=== PATIENT | female | born 1955 | race American Indian/Alaskan Native ===

== ENCOUNTER 2017-12-03 16:40 | Emergency (ER) | payer OTHER ==
[2017-12-03] MEDS ORDERED: CATAPRES PO ONE (17:42)
--- NOTE | 2017-12-03 17:57 | Emergency Department Report ---
ED Headache HPI - General Chief Complaint: High BP Stated Complaint: HYPERTENTION Time Seen by Provider: 12/03/17 17:34 Source: patient, EMS Exam Limitations: no limitations - History of Present Illness Initial Comments: 62-year-old female with a past medical history of hypertension presents to the hospital complains of headache and episode of "shaking all over". Patient states about one hour started where she began having frontal headache, blurred vision and therefore took ibuprofen. Patient primarily stands at work one hour later she began to feel lightheaded. She sat down and started having shaking of her right hand followed by generalized shaking. Patient was conscious and aware during episode. Headache was mild at the time she has continued mild dizziness. Upon EMS arrival she received Versed 5 mg and reports that she feels better at the medication. Patient states she was diagnosed with hypertension 2 years ago and took the meds 1 month and never followed up. Patient complains of persistent mild frontal headache at this time but other symptoms have improved. Patient states that her work is very stressful and she works days in a row without a break Allergies/Adverse Reactions: Allergies No Known Allergies Allergy (Verified 12/03/17 17:25) Home Medications: Ambulatory Orders amLODIPine [Norvasc] 10 mg PO DAILY #30 tab 12/03/17 ED Review of Systems ROS: Stated complaint: HYPERTENTION Other details as noted in HPI Comment: All other systems reviewed and negative ED Past Medical Hx - Past Medical History Previous Medical History?: Yes Hx Hypertension: Yes - Surgical History Past Surgical History?: Yes Additional Surgical History: Removal of spur to left toe. Removal of ganglion cyst from left hand - Social History Smoking Status: Current Every Day Smoker Substance Use Type: Alcohol - Medications Home Medications: Home Medications Medication Instructions Recorded Confirmed Last Taken Type amLODIPine [Norvasc] 10 mg PO DAILY #30 tab 12/03/17 Unknown Rx ED Physical Exam - General Limitations: No Limitations - Other Other exam information: General: No limitations, patient is alert in no acute distress Head exam: Atraumatic, normocephalic Eyes exam: Normal appearance, pupils equal reactive to light, extraocular movements intact ENT: Moist mucous membrane, normal oropharynx Neck exam: Normal inspection, full range of motion, no meningismus nontender Respiratory exam: Clear to auscultation bilateral, no wheezes, rales, crackles Cardiovascular: Normal rate and rhythm, normal heart sounds Abdomen: Soft, nondistended, and nontender, with normal bowel sounds, no rebound, or guarding Extremity: Full range of motion normal inspection no deformity Back: Normal Inspection, full range of motion, no tenderness Neurologic: Alert, oriented x3, cranial nerves intact, no motor or sensory deficit Psychiatric: normal affect, normal mood Skin: Warm, dry, intact ED Course Vital Signs 12/03/17 12/03/17 12/03/17 17:14 17:25 17:30 Temperature 98.4 F Pulse Rate 84 83 83 Respiratory 24 25 H 20 Rate Blood Pressure 182/88 195/96 O2 Sat by Pulse 100 99 99 Oximetry 12/03/17 12/03/17 12/03/17 17:34 18:00 18:32 Temperature Pulse Rate 81 77 Respiratory 25 H 19 22 Rate Blood Pressure 190/96 191/104 O2 Sat by Pulse 99 100 100 Oximetry 12/03/17 12/03/17 12/03/17 19:00 19:06 19:10 Temperature Pulse Rate 77 76 73 Respiratory 20 21 22 Rate Blood Pressure 164/89 164/89 164/89 O2 Sat by Pulse 99 99 100 Oximetry 12/03/17 12/03/17 12/03/17 19:16 19:20 19:26 Temperature Pulse Rate 76 78 76 Respiratory 14 21 21 Rate Blood Pressure 164/89 164/89 164/89 O2 Sat by Pulse 100 100 100 Oximetry 12/03/17 12/03/17 12/03/17 19:30 19:36 19:40 Temperature Pulse Rate 75 72 76 Respiratory 20 21 22 Rate Blood Pressure 154/79 154/79 154/79 O2 Sat by Pulse 100 100 99 Oximetry 12/03/17 12/03/17 12/03/17 19:46 19:50 19:56 Temperature Pulse Rate 80 74 76 Respiratory 18 21 21 Rate Blood Pressure 154/79 150/75 150/75 O2 Sat by Pulse 99 100 100 Oximetry 12/03/17 12/03/17 20:00 20:05 Temperature Pulse Rate 74 75 Respiratory 19 22 Rate Blood Pressure 161/80 151/79 O2 Sat by Pulse 100 100 Oximetry - Reevaluation(s) Reevaluation #1: 12/03/17 20:25 bp improved after clonidine 0.1mg gutierrez resolved ED Medical Decision Making - Lab Data Result diagrams: 12/03/17 17:55 12/03/17 17:55 Lab Results 12/03/17 12/03/17 12/03/17 Range/Units 17:55 17:55 18:38 WBC 7.1 (4.5-11.0) K/mm3 RBC 4.31 (3.65-5.03) M/mm3 Hgb 12.4 (10.1-14.3) gm/dl Hct 38.3 (30.3-42.9) % MCV 89 (79-97) fl MCH 29 (28-32) pg MCHC 33 (30-34) % RDW 14.6 (13.2-15.2) % Plt Count 167 (140-440) K/mm3 Lymph % (Auto) 43.0 H (13.4-35.0) % [place] % (Auto) 10.5 H (0.0-7.3) % Eos % (Auto) 1.7 (0.0-4.3) % Baso % (Auto) 0.8 (0.0-1.8) % Lymph # 3.0 (1.2-5.4) K/mm3 [place] # 0.7 (0.0-0.8) K/mm3 Eos # 0.1 (0.0-0.4) K/mm3 Baso # 0.1 (0.0-0.1) K/mm3 Seg Neutrophils % 44.0 (40.0-70.0) % Seg Neutrophils # 3.1 (1.8-7.7) K/mm3 Sodium 138 (137-145) mmol/L Potassium 4.1 (3.6-5.0) mmol/L Chloride 101.8 (98-107) mmol/L Carbon Dioxide 22 (22-30) mmol/L Anion Gap 18 mmol/L BUN 11 (7-17) mg/dL Creatinine 1.3 H (0.7-1.2) mg/dL Estimated GFR 41 ml/min BUN/Creatinine Ratio 8 % Glucose 105 H (65-100) mg/dL Calcium 9.4 (8.4-10.2) mg/dL Magnesium 2.00 (1.7-2.3) mg/dL Total Creatine Kinase 170 H (30-135) units/L CK-MB (CK-2) 4.3 H (0.0-4.0) ng/mL CK-MB (CK-2) Rel Index 2.5 (0-4) Troponin T < 0.010 (0.00-0.029) ng/mL Urine Color Straw (Yellow) Urine Turbidity Clear (Clear) Urine pH 6.0 (5.0-7.0) Ur Specific [place] 1.006 (1.003-1.030) Urine Protein <15 mg/dl (Negative) mg/dL Urine Glucose (UA) Neg (Negative) mg/dL Urine Ketones Neg (Negative) mg/dL Urine Blood Neg (Negative) Urine Nitrite Neg (Negative) Urine Bilirubin Neg (Negative) Urine Urobilinogen < 2.0 (<2.0) mg/dL Ur Leukocyte Esterase Neg (Negative) Urine WBC (Auto) 2.0 (0.0-6.0) /HPF Urine RBC (Auto) < 1.0 (0.0-6.0) /HPF Urine Opiates Screen Urine Methadone Screen Ur Barbiturates Screen Ur Phencyclidine Scrn Ur Amphetamines Screen U Benzodiazepines Scrn Urine Cocaine Screen U Marijuana (THC) Screen Drugs of Abuse Note 12/03/17 Range/Units 18:38 WBC (4.5-11.0) K/mm3 RBC (3.65-5.03) M/mm3 Hgb (10.1-14.3) gm/dl Hct (30.3-42.9) % MCV (79-97) fl MCH (28-32) pg MCHC (30-34) % RDW (13.2-15.2) % Plt Count (140-440) K/mm3 Lymph % (Auto) (13.4-35.0) % [place] % (Auto) (0.0-7.3) % Eos % (Auto) (0.0-4.3) % Baso % (Auto) (0.0-1.8) % Lymph # (1.2-5.4) K/mm3 [place] # (0.0-0.8) K/mm3 Eos # (0.0-0.4) K/mm3 Baso # (0.0-0.1) K/mm3 Seg Neutrophils % (40.0-70.0) % Seg Neutrophils # (1.8-7.7) K/mm3 Sodium (137-145) mmol/L Potassium (3.6-5.0) mmol/L Chloride (98-107) mmol/L Carbon Dioxide (22-30) mmol/L Anion Gap mmol/L BUN (7-17) mg/dL Creatinine (0.7-1.2) mg/dL Estimated GFR ml/min BUN/Creatinine Ratio % Glucose (65-100) mg/dL Calcium (8.4-10.2) mg/dL Magnesium (1.7-2.3) mg/dL Total Creatine Kinase (30-135) units/L CK-MB (CK-2) (0.0-4.0) ng/mL CK-MB (CK-2) Rel Index (0-4) Troponin T (0.00-0.029) ng/mL Urine Color (Yellow) Urine Turbidity (Clear) Urine pH (5.0-7.0) Ur Specific [place] (1.003-1.030) Urine Protein (Negative) mg/dL Urine Glucose (UA) (Negative) mg/dL Urine Ketones (Negative) mg/dL Urine Blood (Negative) Urine Nitrite (Negative) Urine Bilirubin (Negative) Urine Urobilinogen (<2.0) mg/dL Ur Leukocyte Esterase (Negative) Urine WBC (Auto) (0.0-6.0) /HPF Urine RBC (Auto) (0.0-6.0) /HPF Urine Opiates Screen Presumptive negative Urine Methadone Screen Presumptive negative Ur Barbiturates Screen Presumptive negative Ur Phencyclidine Scrn Presumptive negative Ur Amphetamines Screen Presumptive negative U Benzodiazepines Scrn Presumptive positive Urine Cocaine Screen Presumptive negative U Marijuana (THC) Screen Presumptive negative Drugs of Abuse Note Disclamer - EKG Data -: EKG Interpreted by Nd EKG shows normal: sinus rhythm, axis (qrs 20), QRS complexes (qrsd 78), ST-T waves (lat t wave inv) Rate: normal (81) - EKG Data When compared to previous EKG there are: previous EKG unavailable - Radiology Data Radiology results: report reviewed READ BY RADIOLOGIST CT HEAD NONCONTRAST IMPRESSION: Chronic small vessel white matter ischemic change - Medical Decision Making Patient has history of hypertension and medication noncompliance. No signs of hypertensive emergency. Patient admits to a lot of stress at her job this could exacerbate her symptoms. Patient encouraged to monitor her blood pressure daily, record it, take the prescribed medication and follow with primary care doctor for further treatment and evaluation. - Differential Diagnosis htn emergency, urgency, ich, renal failure, near syncope, tremor, anxiety Critical Care Time: No Critical care attestation.: If time is entered above; I have spent that time in minutes in the direct care of this critically ill patient, excluding procedure time. ED Disposition Clinical Impression: Uncontrolled hypertension, Headache, Stress reaction, Noncompliance with medication regimen Disposition: TO HOME OR SELFCARE Is pt being admited?: No Does the pt Need Aspirin: No Condition: Stable Instructions: Hypertension (ED), Stress (ED), Acute Headache (ED) Additional Instructions: Take the medication as prescribed. Return if symptoms worsen. Record your blood pressure daily and record it prior to your follow-up. Return if symptoms worsen as indicated by your discharge instructions Prescriptions: amLODIPine [Norvasc] 10 mg PO DAILY #30 tab Referrals: BRENNAN BALBUENA MD [Staff Physician] - 3-5 Days (primary care doctor ) Forms: Work/School Release Form(ED) Time of Disposition: 20:25 - Assessment Assessment Interval: Baseline - Level of Consciousness 1a. Level of Consciousness: alert - LOC Questions 1b. LOC Questions: answers correctly - LOC Command 1c. LOC Commands: performs tasks correctly - Best Gaze 2. Best Gaze: normal - Visual 3. Visual: no visual loss - Facial Palsy 4. Facial Palsy: normal symmetrical movement - Motor Arm 5b. Motor Arm Right: no drift 5a. Motor Arm Left: no drift - Motor Leg 6a. Motor Leg Left: no drift 6b. Motor Leg Right: no drift - Limb Ataxia 7. Limb Ataxia: absent - Sensory 8. Sensory: normal - Best Language 9. Best Language: no aphasia - Dysarthria 10. Dysarthria: normal - Extinction and Inattention 11. Extinction/Inattention: no abnormality - Scoring Total Score: 0 Stroke Severity: No Stroke Symptoms
[2017-12-03 18:16] LABS: Basophils # (Auto) 0.1 K/mm3 (0.0-0.1); Basophils % (Auto) 0.8 % (0.0-1.8); Eosinophils # (Auto) 0.1 K/mm3 (0.0-0.4); Eosinophils % (Auto) 1.7 % (0.0-4.3); Hematocrit 38.3 % (30.3-42.9); Hemoglobin 12.4 gm/dl (10.1-14.3); Mean Corpuscular HGB Conc 33 % (30-34); Mean Corpuscular Hemoglobin 29 pg (28-32); Mean Corpuscular Volume 89 fl (79-97); Monocytes # (Auto) 0.7 K/mm3 (0.0-0.8); Monocytes % (Auto) 10.5 % (0.0-7.3); Platelet Count 167 K/mm3 (140-440); Red Blood Count 4.31 M/mm3 (3.65-5.03); Red Cell Distribution Width 14.6 % (13.2-15.2)
[2017-12-03 18:28] LABS: Creatine Kinase MB 4.3 ng/mL (0.0-4.0)
[2017-12-03 18:29] LABS: BUN/Creatinine Ratio 8; Blood Urea Nitrogen 11 mg/dL (7-17); Calcium 9.4 mg/dL (8.4-10.2); Hemolysis Index 0
[2017-12-03 18:48] LABS: Bilirubin,Urine NEG (Negative); Blood,Urine NEG (Negative); Color,Urine Straw (Yellow); Protein,Urine <15 mg/dL mg/dL (Negative); RBC,Urine < 1.0 /HPF (0.0-6.0); Urobilinogen,Urine < 2.0 mg/dL (<2.0)
[2017-12-03 18:59] LABS: Amphetamine Screen,Urine PRESUMPTIVE NEGATIVE; Cannabinoid Screen,Urine PRESUMPTIVE NEGATIVE; Cocaine Screen,Urine PRESUMPTIVE NEGATIVE; Methadone Screen,Urine PRESUMPTIVE NEGATIVE; Opiate Screen,Urine PRESUMPTIVE NEGATIVE
[2017-12-03 19:15] LABS: Benzodiazepines Screen,Urine PRESUMPTIVE POSITIVE
--- NOTE | 2017-12-03 19:48 | Cat Scan Report ---
FINAL REPORT EXAM: CT HEAD/BRAIN WO CON HISTORY: gutierrez, dizzy, htn TECHNIQUE: CT head without contrast PRIORS: None. FINDINGS: No acute intra-axial or extra-axial hemorrhage is identified. There is no evidence of midline shift or mass effect. The ventricles and sulci are within normal limits. Anderson-white matter differentiation is intact. No acute parenchymal abnormalities seen. There are patchy and confluent hypodensities within the supratentorial white matter. Bony calvarium is grossly intact. Visualized portions of the mastoids and paranasal sinuses are unremarkable. IMPRESSION: Chronic small vessel white matter ischemic change
[2017-12-03 20:14] VITALS: BP 151/79
== END 2017-12-03 21:21 | disposition home or self-care (01) ==
LOC: ED 16:40
DX: I10 Essential (primary) hypertension (principal); R51 Headache; F43.9 Reaction to severe stress, unspecified; F17.200 Nicotine dependence, unspecified, uncomplicated; Z91.14 Patient's other noncompliance with medication regimen
CPT/HCPCS: 36415; 70450; 80048; 80307; 81001; 82550; 82553; 83735; 84484; 85025; 93005; 93010

== ENCOUNTER 2020-11-01 11:50 | Observation (INO) | payer MEDICARE, OTHER ==
--- NOTE | 2020-11-01 11:59 | Emergency Department Report ---
ED Neuro Deficit HPI - General Stated Complaint: LT SIDE WEAKNESS, SLURRED SPEECH Time Seen by Provider: 11/01/20 11:56 - History of Present Illness Initial Comments: 68-year-old female, prior history of CVA with left-sided deficits, presents to ED with worsening left arm weakness and worsening left facial droop, onset this morning. I spoke with patient's daughter, Brandy ([phone]). Last known well time was last night prior to going to bed. She states patient attempted to make coffee this morning but dropped the sugar. She attempted to clean it up but dropped the broom. Patient then dropped her medications on the floor as well. Daughter states patient reported to her that her left arm felt really heavy. She reports patient had some slurred speech associated with it and also left facial droop. States patient was drooling as well. Daughter states her symptoms seem to be getting worse, so she called EMS. There was also some associated confusion at the time. Upon EMS arrival, EMS they and patient report that her symptoms have resolved, and that she is now back at her baseline. Accu-Chek was normal. 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 -: This morning Location: speech, left face, left arm Presenting Symptoms: Present: Weak/Paralyzed One Side History of same: Yes Place: home Severity: moderate Quality: improving Improves With: none Worsens With: none On Anticoagulants: Yes (Brilinta) Associated Symptoms: denies: chest pain, headaches, nausea/vomiting, shortness of breath - Related Data Home Medications: Previous Rx's Medication Instructions Recorded Last Taken Type amLODIPine [Norvasc] 10 mg PO DAILY #30 tab 12/03/17 11/01/20 Rx Allergies/Adverse Reactions: Allergies Allergy/AdvReac Type Severity Reaction Status Date / Time No Known Allergies Allergy Verified 11/01/20 14:14 ED Review of Systems ROS: Stated complaint: LT SIDE WEAKNESS, SLURRED SPEECH Other details as noted in HPI Comment: All other systems reviewed and negative Constitutional: denies: fever Respiratory: denies: shortness of breath Cardiovascular: denies: chest pain Neurological: weakness. denies: headache ED Past Medical Hx - Past Medical History Hx Hypertension: Yes - Surgical History Additional Surgical History: Removal of spur to left toe. Removal of ganglion cyst from left hand - Social History Smoking Status: Current Every Day Smoker Substance Use Type: Alcohol - Medications Home Medications: Home Medications Medication Instructions Recorded Confirmed Last Taken Type amLODIPine [Norvasc] 10 mg PO DAILY #30 tab 12/03/17 11/01/20 11/01/20 Rx ED Neuro Physical Exam - General General appearance: alert, in no apparent distress Suspected Stroke: Yes - Head Head exam: Present: atraumatic, normocephalic - Eye Eye exam: Present: EOMI - ENT ENT exam: Present: mucous membranes moist - Neck Neck exam: Present: normal inspection - Respiratory Respiratory exam: Present: normal lung sounds bilaterally. Absent: respiratory distress - Cardiovascular Cardiovascular Exam: Present: regular rate, normal rhythm - GI/Abdominal GI/Abdominal exam: Present: soft. Absent: distended, tenderness - Extremities Exam Extremities exam: Present: normal inspection - Neurological Exam Neurological exam: Present: alert, oriented X3, motor sensory deficit - NIHSS Assessment Interval: Baseline 1a. Level of Consciousness: alert/keenly responsive 1b. LOC Questions: answers both correctly 1c. LOC Commands: performs tasks correctly 2. Best Gaze: normal 3. Visual: no visual loss 4. Facial Palsy: minor paralysis 5b. Motor Arm Right: no drift 5a. Motor Arm Left: drift 6a. Motor Leg Left: no drift 6b. Motor Leg Right: no drift 7. Limb Ataxia: absent 8. Sensory: normal 9. Best Language: no aphasia 10. Dysarthria: mild/moderate dysarthria 11. Extinction/Inattention: no abnormality Total Score: 3 Stroke Severity: Minor Stroke - Psychiatric Psychiatric exam: Present: normal affect, normal mood - Skin Skin exam: Present: warm, dry, intact, normal color ED Course Vital Signs 11/01/20 11/01/20 11/01/20 12:12 12:16 12:30 Temperature Pulse Rate 64 58 L 58 L Respiratory 13 16 20 Rate Blood Pressure 147/56 147/56 Blood Pressure [left arm] O2 Sat by Pulse 100 100 99 Oximetry 11/01/20 11/01/20 11/01/20 12:34 12:46 13:00 Temperature 97.9 F Pulse Rate 65 56 L 54 L Respiratory 14 14 14 Rate Blood Pressure 113/72 113/72 Blood Pressure 147/56 [left arm] O2 Sat by Pulse 99 99 99 Oximetry 11/01/20 11/01/20 13:16 13:30 Temperature Pulse Rate 55 L 65 Respiratory 23 Rate Blood Pressure 103/57 Blood Pressure 113/72 [left arm] O2 Sat by Pulse 99 96 Oximetry - Consultations Consultation #1: 11/01/20 12:56 Pt seen and evaluated by teleneurologist, Dr Obando. No tPA recommended at this time. Recommends admission for stroke workup, MRI, MRA. - Lab Data Result diagrams: 11/01/20 12:21 11/01/20 12:21 Lab Results 11/01/20 11/01/20 11/01/20 Range/Units 12:21 12:21 12:21 WBC 11.2 H (4.5-11.0) K/mm3 RBC 3.31 L (3.65-5.03) M/mm3 Hgb 9.4 L (10.1-14.3) gm/dl Hct 28.7 L (30.3-42.9) % MCV 87 (79-97) fl MCH 28 (28-32) pg MCHC 33 (30-34) % RDW 14.5 (13.2-15.2) % Plt Count 230 (140-440) K/mm3 Lymph % (Auto) 11.4 L (13.4-35.0) % [place] % (Auto) 6.5 (0.0-7.3) % Eos % (Auto) 1.6 (0.0-4.3) % Baso % (Auto) 0.4 (0.0-1.8) % Lymph # (Auto) 1.3 (1.2-5.4) K/mm3 [place] # (Auto) 0.7 (0.0-0.8) K/mm3 Eos # (Auto) 0.2 (0.0-0.4) K/mm3 Baso # (Auto) 0.0 (0.0-0.1) K/mm3 Seg Neutrophils % 80.1 H (40.0-70.0) % Seg Neutrophils # 9.0 H (1.8-7.7) K/mm3 PT 14.4 (12.2-14.9) Sec. INR 1.13 (0.87-1.13) APTT 24.0 L (24.2-36.6) Sec. Thrombin Time (15.1-19.6) Sec. Sodium 137 (137-145) mmol/L Potassium 4.1 (3.6-5.0) mmol/L Chloride 103.8 (98-107) mmol/L Carbon Dioxide 20 L (22-30) mmol/L Anion Gap 17 mmol/L BUN 10 (7-17) mg/dL Creatinine 1.4 H (0.6-1.2) mg/dL Estimated GFR 45 ml/min BUN/Creatinine Ratio 7 % Glucose 133 H (65-100) mg/dL POC Glucose (70-105) mg/dL Calcium 9.6 (8.4-10.2) mg/dL Troponin T < 0.010 (0.00-0.029) ng/mL 11/01/20 11/01/20 Range/Units 12:21 12:46 WBC (4.5-11.0) K/mm3 RBC (3.65-5.03) M/mm3 Hgb (10.1-14.3) gm/dl Hct (30.3-42.9) % MCV (79-97) fl MCH (28-32) pg MCHC (30-34) % RDW (13.2-15.2) % Plt Count (140-440) K/mm3 Lymph % (Auto) (13.4-35.0) % [place] % (Auto) (0.0-7.3) % Eos % (Auto) (0.0-4.3) % Baso % (Auto) (0.0-1.8) % Lymph # (Auto) (1.2-5.4) K/mm3 [place] # (Auto) (0.0-0.8) K/mm3 Eos # (Auto) (0.0-0.4) K/mm3 Baso # (Auto) (0.0-0.1) K/mm3 Seg Neutrophils % (40.0-70.0) % Seg Neutrophils # (1.8-7.7) K/mm3 PT (12.2-14.9) Sec. INR (0.87-1.13) APTT (24.2-36.6) Sec. Thrombin Time 17.6 (15.1-19.6) Sec. Sodium (137-145) mmol/L Potassium (3.6-5.0) mmol/L Chloride (98-107) mmol/L Carbon Dioxide (22-30) mmol/L Anion Gap mmol/L BUN (7-17) mg/dL Creatinine (0.6-1.2) mg/dL Estimated GFR ml/min BUN/Creatinine Ratio % Glucose (65-100) mg/dL POC Glucose 114 H (70-105) mg/dL Calcium (8.4-10.2) mg/dL Troponin T (0.00-0.029) ng/mL - EKG Data -: EKG Interpreted by Me EKG shows normal: sinus rhythm, axis, intervals, QRS complexes, ST-T waves Rate: normal - Radiology Data Radiology results: report reviewed, image reviewed - Medical Decision Making 65-year-old female presents to ED with left-sided weakness and slurred speech which has apparently improved. Patient states she feels as though she is back at her baseline. She is ANO x3. CT head shows possible subacute stroke in right posterior parietal area. Patient's last known well time was last night. Patient has been seen and evaluated by teleneurologist. She is not a candidate for TPA. Patient will be admitted for stroke work-up. She will be admitted to Dr. Fernandez, hospitalist, for further management. - Differential Diagnosis TIA, CVA Critical care attestation.: If time is entered above; I have spent that time in minutes in the direct care of this critically ill patient, excluding procedure time. ED Disposition Clinical Impression: CVA (cerebral vascular accident) Disposition: OP ADMIT IP TO THIS HOSP Is pt being admited?: Yes Condition: Stable Time of Disposition: 13:27
[2020-11-01 12:31] LABS: Basophils % (Auto) 0.4 % (0.0-1.8); Eosinophils # (Auto) 0.2 K/mm3 (0.0-0.4); Eosinophils % (Auto) 1.6 % (0.0-4.3); Hematocrit 28.7 % (30.3-42.9); Hemoglobin 9.4 gm/dl (10.1-14.3); Lymphocytes # (Auto) 1.3 K/mm3 (1.2-5.4); Lymphocytes % (Auto) 11.4 % (13.4-35.0); Mean Corpuscular HGB Conc 33 % (30-34); Mean Corpuscular Volume 87 fl (79-97); Monocytes # (Auto) 0.7 K/mm3 (0.0-0.8); Monocytes % (Auto) 6.5 % (0.0-7.3); Platelet Count 230 K/mm3 (140-440); Red Blood Count 3.31 M/mm3 (3.65-5.03); Red Cell Distribution Width 14.5 % (13.2-15.2)
--- NOTE | 2020-11-01 12:32 | Cat Scan Report ---
CT HEAD WITHOUT CONTRAST INDICATION : Worsening left-sided weakness and facial droop, code stroke. TECHNIQUE: Axial imaging performed from the skull apex through the skull base without the use of con trast. Sagittal and coronal reformatted images. All CT scans at this location are performed using C T dose reduction for ALARA by means of automated exposure control. COMPARISON: 12/03/2017 FINDINGS: Parenchyma: Advanced cortical volume loss and chronic microvascular ischemic changes in the white ma tter are noted. These findings have advanced significantly since the previous exam on 12/03/2017. There is loss of the nowak-white interface in the right posterior watershed region which is best demonstrat ed on axial image 19. This has the appearance of a subacute to early chronic ischemic insult but this is new since the previous exam. No definite acute parenchymal infarct is appreciated. No evidence fo r hemorrhage, mass or extra-axial fluid collection. There is been interval coiling of an aneurysm audie ng the right side of the suprasellar cistern, correlate with history. Ventricles: Ventricles are normal in size and appear symmetric. Bones: No acute osseous abnormality. Sinuses: Sinuses and mastoid air cells are clear. Soft tissues: Soft tissues including the orbits appear normal. IMPRESSION: Advanced volume loss and chronic white matter changes which have progressed since 2018 ex am. Subacute to early chronic appearing cortical infarct in the right posterior watershed region. No acute parenchymal abnormality or hemorrhage is identified. CODE STROKE: Time of Communication (EST/EDT): 1221 hours Licensed Practitioner Receiving Report: MD Alvin Signer Name: Andrez Hickman Jr, MD Signed: 11/01/2020 12:28 PM Workstation Name: [id number]
[2020-11-01 12:42] LABS: INR 1.13 (0.87-1.13)
[2020-11-01 12:46] LABS: BUN/Creatinine Ratio 7; Blood Urea Nitrogen 10 mg/dL (7-17); Calcium 9.6 mg/dL (8.4-10.2); Hemolysis Index 0
--- NOTE | 2020-11-01 13:38 | History and Physical Report ---
History of Present Illness Chief complaint: My left arm feels weak and heavy History of present illness: 65 YO Female with CVA complicated by LHP, HTN, Nicotine Dependence, Vascular Dementia, Cerebral Atherosclerosis presents to ED for evaluation. Patient reports "my left arm feels weak and heavy". Patient states that she was in her usual state of health at bedtime which was around 2100 hrs. Patient states that she awoke from sleep around 0830 hrs. and was found to have left arm weakness, slurred speech, as well as left-sided facial drooping. Patient daughter, who is available by phone to discuss patient history, acknowledges the symptoms and also reports worsening of symptoms this morning. EMS was notified and upon arrival the patient was found to be in distress with a focal neurologic deficit. A code stroke was called and the patient was transported to [facility] for further care and evaluation of the aforementioned symptoms. The patient was seen and evaluated in the emergency department. All lab and imaging studies reviewed. Patient found to have clinical symptoms consistent with CVA. The patient was placed in observation status and admitted to telemetry and initiated on CVA protocol. Patient also found to have acute kidney injury, as well as systemic inflammatory response syndrome. Patient initiated on IV antibiotic therapy as well as IV fluid resuscitation therapy. Patient denies fever, chills, chest pain, palpitation, productive cough, skin rash, recent ill contacts, or known exposure to COVID-19. No prior admission for review. All medication listed at time of admission has been reconciled. Advanced care planning conducted in ED. Past History Past Medical History: hypertension, hyperlipidemia, stroke Past Surgical History: Other (Removal of spur to left toe. Removal of ganglion cyst from left hand) Social history: single, smoking. denies: alcohol abuse, prescription drug abuse Family history: diabetes, hypertension Medications and Allergies Allergies Allergy/AdvReac Type Severity Reaction Status Date / Time No Known Allergies Allergy Verified 11/01/20 14:14 Home Medications Medication Instructions Recorded Confirmed Last Taken Type amLODIPine [Norvasc] 10 mg PO DAILY #30 tab 12/03/17 11/01/20 11/01/20 Rx Review of Systems Constitutional: no weight loss, no weight gain, no fever, no chills Ears, nose, mouth and throat: no ear pain, no ear discharge, no tinnitis, no nose pain, no nasal congestion, no nasal discharge Breasts: no change in shape, no swelling, no mass Cardiovascular: no chest pain, no orthopnea, no palpitations, no rapid/irregular heart beat, no edema Respiratory: no cough, no cough with sputum, no hemoptysis, no dyspnea on exertion Gastrointestinal: no abdominal pain, no nausea, no vomiting, no constipation, no change in bowel habits Genitourinary Female: no pelvic pain, no flank pain, no menorrhagia, no dysuria, no urinary frequency Rectal: no pain, no incontinence, no bleeding Musculoskeletal: no neck stiffness, no neck pain, no arm numbness/tingling, no shooting leg pain Integumentary: no rash, no pruritis, no redness, no sores, no wounds Neurological: weakness, numbness, seizures, syncope, change in speech, memory loss, gait dysfunction, motor disturbance, sensory deficit Psychiatric: no anxiety, no memory loss, no change in sleep habits, no insomnia, no hypersomnia, no change in appetite, no change in libido, no disorientation Endocrine: no cold intolerance, no heat intolerance, no polyphagia, no excessive thirst, no polydipsia, no polyuria, no nocturia Hematologic/Lymphatic: no easy bruising, no easy bleeding, no lymphedema Allergic/Immunologic: no urticaria, no allergic rhinitis, no wheezing, no persistent infections, no anaphylaxis Exam - Constitutional Vitals: Temp Pulse Resp BP Pulse Ox 97.9 F 55 L 23 103/57 99 11/01/20 12:34 11/01/20 13:16 11/01/20 13:16 11/01/20 13:16 11/01/20 13:16 General appearance: Present: mild distress - EENT Eyes: Present: PERRL ENT: hearing intact, clear oral mucosa - Neck Neck: Present: supple, normal ROM - Respiratory Respiratory effort: normal Respiratory: bilateral: CTA - Cardiovascular Heart Sounds: Present: S1 & S2. Absent: rub, click - Extremities Extremities: pulses symmetrical, No edema Peripheral Pulses: within normal limits - Abdominal General gastrointestinal: Present: soft, non-tender, non-distended, normal bowel sounds Female genitourinary: Present: normal - Integumentary Integumentary: Present: clear, warm, dry - Musculoskeletal Musculoskeletal: left sided weakness - Psychiatric Psychiatric: appropriate mood/affect, intact judgment & insight - Neurologic Neurologic: CNII-XII intact, moves all extremities HEART Score - HEART Score Troponin: Troponin T < 0.010 ng/mL (0.00-0.029) 11/01/20 12:21 Results - Labs CBC & Chem 7: 11/01/20 12:21 11/01/20 12:21 Labs: Abnormal lab results 11/01/20 11/01/20 11/01/20 Range/Units 12:21 12:21 12:21 WBC 11.2 H (4.5-11.0) K/mm3 RBC 3.31 L (3.65-5.03) M/mm3 Hgb 9.4 L (10.1-14.3) gm/dl Hct 28.7 L (30.3-42.9) % Lymph % (Auto) 11.4 L (13.4-35.0) % Seg Neutrophils % 80.1 H (40.0-70.0) % Seg Neutrophils # 9.0 H (1.8-7.7) K/mm3 APTT 24.0 L (24.2-36.6) Sec. Carbon Dioxide 20 L (22-30) mmol/L Creatinine 1.4 H (0.6-1.2) mg/dL Glucose 133 H (65-100) mg/dL Assessment and Plan - Patient Problems (1) CVA (cerebral vascular accident) Current Visit: Yes Status: Acute Plan to address problem: CVA protocol: CT head, teleneurology consulted, seizure precaution, aspiration precautions, fall precautions, echocardiogram, carotid Doppler, dual antiplatelet therapy, supportive care, lipid panel, statin therapy. Physical therapy consulted, speech therapy consulted, Occupational Therapy consulted (2) SIRS (systemic inflammatory response syndrome) Current Visit: Yes Status: Acute Plan to address problem: CBC, empiric IV antibiotic therapy x1 dose, repeat CBC in a.m. (3) DONIS (acute kidney injury) Current Visit: Yes Status: Acute Plan to address problem: Encourage free water intake, BMP, repeat BMP in a.m., monitor urine output every shift. (4) DVT prophylaxis Current Visit: Yes Status: Acute Plan to address problem: SCD bilateral lower extremities while in bed, patient is ambulatory. (5) Advance care planning Current Visit: Yes Status: Acute Plan to address problem: Disease education conducted, patient is full code, diagnosis discussed, care plan discussed, prognosis discussed, patient knowledges understanding and agre ement with care plan, +30 minutes.
[2020-11-01] MEDS ORDERED: ONDANSETRON 4 MG/2 ML INJ IV PRN (13:50)
[2020-11-01] MEDS ORDERED: METOCLOPRAMIDE 10 MG TAB PO PRN (13:50)
[2020-11-01] MEDS ORDERED: ACETAMINOPHEN 325 MG TAB PO PRN (13:50)
[2020-11-01] MEDS ORDERED: MAGNESIUM HYDROXIDE (MOM) ORAL LIQD UDC PO PRN (13:50)
[2020-11-01] MEDS ORDERED: PROMETHAZINE 25 MG RECT SUPP PR PRN (13:50)
[2020-11-01] MEDS ORDERED: CLOPIDOGREL 75 MG TAB PO ONE (13:54)
[2020-11-01] MEDS ORDERED: ASPIRIN 325 MG TAB PO ONE (14:32)
--- NOTE | 2020-11-01 14:33 | Consultation ---
History of Present Illness History of present illness: Arp Teleneurology Consult Note # Demographics Consult Type: 0-6 hour Stroke First Name: Claudia Last Name: Dwain Date of : 1955 Age: 65 Gender: female # HPI Additional History: 65 year-old female with a history of stroke with residual left-sided weakness presents with worsening of her baseline left-sided weakness and dysarthria. Symptoms were present upon waking. She was last known normal last night before bed. Head CT is notable for blurring of the [place] white junction of the right parietal lobe concerning for possible acute or subacute stroke. # Scores Time of exam and NIHSS ([place]ountain Time): 11-01-2020, 10:33 Level of Consciousness 1a: [0] = Alert; keenly responsive LOC Questions 1b: [0] = Answers both questions correctly LOC Commands 1c: [0] = Performs both tasks correctly Best Gaze 2: [0] = Normal Visual 3: [0] = No visual loss Facial Palsy 4: [1] = Minor paralysis Motor Arm Left 5a: [0] = No drift Motor Arm Right 5b: [0] = No drift Motor Leg Left 6a: [0] = No drift Motor Leg Right 6b: [0] = No drift Limb Ataxia 7: [0] = Absent Sensory 8: [0] = Normal Best Language 9: [0] = No aphasia Dysarthria 10: [1] = Krik-bo-[id number] dysarthria Extinction and Inattention 11: [0] = No abnormality NIHSS Total: 2 # PMH-FH-SH Past Medical History: stroke Medications: antiplatelet # Exam Vitals: vital signs reviewed # Data Head CT: no bleed # Assessment Impression: Transient dysarthria and worsening of baseline left-sided weakness - possible TIA/stroke versus recrudescence or prior stroke # Plan Thrombolytic/Intervention: NOT IV Alteplase or IA Intervention Alteplase Exclusion: > 4.5 hours Intraarterial Exclusion: symptoms resolved Labs: hemoglobin A1c, lipid panel Imaging: (urgency: routine admission): MR Angiogram Head without contrast, MR Angiogram Neck with contrast, MRI Brain without contrast Diagnostic Test: echo without bubble study Therapy/Evaluation: NPO until swallow evaluation, PT/OT evaluation, speech/swallow consultation Medication: start statin with goal of LDL < 70, Brilinta Other: permissive hypertension, telemetry monitoring, I have discussed my recommendations with the referring provider Disposition: admit Medications and Allergies Allergies Allergy/AdvReac Type Severity Reaction Status Date / Time No Known Allergies Allergy Verified 11/01/20 14:14 Home Medications Medication Instructions Recorded Confirmed Last Taken Type amLODIPine [Norvasc] 10 mg PO DAILY #30 tab 12/03/17 11/01/20 11/01/20 Rx Active Meds: Active Medications Acetaminophen (Acetaminophen 325 Mg Tab) 650 mg PO Q4H PRN PRN Reason: Pain, Mild (1-3) Aspirin (Aspirin 325 Mg Tab) 325 mg PO QDAY MICHELLE Bisacodyl (Bisacodyl 10 Mg Rect Supp) 10 mg IN QDAY PRN PRN Reason: Constipation Magnesium Hydroxide (Magnesium Hydroxide (Mom) Oral Liqd Udc) 30 ml PO Q4H PRN PRN Reason: Constipation Metoclopramide HCl (Metoclopramide 10 Mg Tab) 10 mg PO Q6H PRN PRN Reason: Nausea And Vomiting Ondansetron HCl (Ondansetron 4 Mg/2 Ml Inj) 4 mg IV Q8H PRN PRN Reason: Nausea And Vomiting Pravastatin Sodium (Pravastatin 40 Mg Tab) 40 mg PO QHS MICHELLE Promethazine HCl (Promethazine 25 Mg Rect Supp) 25 mg IN Q6H PRN PRN Reason: Nausea And Vomiting Sodium Chloride (Sodium Chloride 0.9% 10 Ml Flush Syringe) 10 ml IV PRN PRN PRN Reason: LINE FLUSH Physical Examination - Vital Signs Vital Signs: Vital Signs Pulse Resp Pulse Ox 64 13 100 11/01/20 12:12 11/01/20 12:12 11/01/20 12:12 Results - Laboratory Findings CBC and BMP: 11/01/20 12:21 11/01/20 12:21 Abnormal Lab Findings: Abnormal Labs 11/01/20 11/01/20 11/01/20 12:21 12:21 12:21 WBC 11.2 H RBC 3.31 L Hgb 9.4 L Hct 28.7 L Lymph % (Auto) 11.4 L Seg Neutrophils % 80.1 H Seg Neutrophils # 9.0 H APTT 24.0 L Carbon Dioxide 20 L Creatinine 1.4 H Glucose 133 H
--- NOTE | 2020-11-01 15:24 | Vascular Lab Report ---
BILATERAL CAROTID DOPPLER ULTRASOUND INDICATION : stroke TECHNIQUE: Grayscale and color Doppler imaging performed through the neck. COMPARISON: None FINDINGS: Right: There is moderate intimal hyperplasia in the distal CCA. Partially calcified plaques are not ed in the carotid bulb and proximal ICA. Peak systolic velocity in the CCA is 102 cm/s with end-diast olic velocity of 19 cm/s. Peak systolic velocity in the proximal ICA is 95 cm/s with end-diastolic ve locity of 26 cm/s. ICA to CCA ratio is less than 2. There is antegrade flow in the ECA and the verte bral artery. Left: There is moderate intimal hyperplasia in the distal CCA. Mild calcific plaques in the carotid b ulb and proximal ICA.. Peak systolic velocity in the CCA is 123 cm/s with end-diastolic velocity of 1 2 cm/s. Peak systolic velocity in the proximal ICA is 175 cm/s with end-diastolic velocity of 32 cm/s . ICA to CCA ratio is less than 2. There is antegrade flow in the ECA and the vertebral artery. IMPRESSION: NASCET criteria demonstrate 50-79% stenosis in the proximal left ICA.. Signer Name: Andrez Hickman Jr, MD Signed: 11/01/2020 3:19 PM Workstation Name: [id number]
[2020-11-01] MEDS: cefTRIAXone/NS 1 GM/50 ML 1 GM/50 ML BAG IV SCH (15:30)
[2020-11-01] MEDS ORDERED: PRAVASTATIN 40 MG TAB PO SCH (22:00)
[2020-11-02 06:12] LABS: Chol/HDL Ratio 2.57 %
[2020-11-02] MEDS: ASPIRIN 325 MG TAB PO SCH (10:15)
--- NOTE | 2020-11-02 11:33 | Discharge Summary ---
Providers - Providers Date of Admission: 11/01/20 13:50 Attending physician: DANA LENTZ MD 11/01/20 13:50 Occupational Therapy Evaluate and Treat [CONS] Routine Comment: Reason For Exam: Neuro deficits Physical Therapy Evaluation and Treat [CONS] Routine Comment: Reason For Exam: Neuro deficits 11/02/20 09:04 Consult to Physician [CONS] Routine Comment: Consulting Provider: IMTIAZ GALDAMEZ Physician Instructions: Reason For Exam: cva 11/02/20 11:26 Consult to Physician [CONS] Routine Comment: Consulting Provider: ARGELIA DÍAZ Physician Instructions: Reason For Exam: ICA stenosis Primary care physician: [facility] Reason for admission: TIA Condition: Stable Hospital course: 65 YO Female with CVA complicated by LHP, HTN, Nicotine Dependence, Vascular Dementia, Cerebral Atherosclerosis presents to ED for evaluation. Patient reports "my left arm feels weak and heavy". Patient states that she was in her usual state of health at bedtime which was around 2100 hrs. Patient states that she awoke from sleep around 0830 hrs. and was found to have left arm weakness, slurred speech, as well as left-sided facial drooping. Patient daughter, who is available by phone to discuss patient history, acknowledges the symptoms and also reports worsening of symptoms this morning. EMS was notified and upon arrival the patient was found to be in distress with a focal neurologic deficit. A code stroke was called and the patient was transported to [facility] for further care and evaluation of the aforementioned symptoms. The patient was seen and evaluated in the emergency department. All lab and imaging studies reviewed. Patient found to have clinical symptoms consistent with CVA. The patient was placed in observation status and admitted to telemetry and initiated on CVA protocol. Patient also found to have acute kidney injury, as well as systemic inflammatory response syndrome. Patient initiated on IV antibiotic therapy as well as IV fluid resuscitation therapy. Patient denies fever, chills, chest pain, palpitation, productive cough, skin rash, recent ill contacts, or known exposure to COVID-19. No prior admission for review. All medication listed at time of admission has been reconciled. Advanced care planning conducted in ED. Patient was considered not a candidate for IA intervention or IV alteplase due to duration of symptoms. I discussed with the patient's daughter who did not have much information but asked me to call Ms. 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 Review of imaging studies shows ICA stenosis of 50 to 79%. Have consulted IR to give us their input prior to discharge of the patient. Patient apparently at home is on Brilinta and high dose of atorvastatin will continue this at this time. Per the daughter the patient also had 2 aneurysms in the past and was okayed to be on this medications. EKG did not reveal any atrial fibrillation at this time. 20 minutes of counseling was provided to the patient on tobacco use disorder and need to quit she verbalized understanding. Patient requesting to be discharged (1) Transient dysarthria and worsening of baseline left-sided weakness - subacute CVA (2) SIRS (systemic inflammatory response syndrome) with no evidence of sepsis (3) DONIS (acute kidney injury) secondary to vasomotor nephropathy (4) tobacco use disorder (5) HTN Disposition: [id number] HOME UNDER HOME HLTH Time spent for discharge: 35 mins Core Measure Documentation - Palliative Care Palliative Care/ Comfort Measures: Not Applicable - Core Measures Any of the following diagnoses?: stroke - Stroke Discharge Requirements Statin for LDL = or >70 mg/dl on DC: Yes Anticoag for atrial fib/atrial flutter: Not Applicable Antithrombotic for ischemic stroke: Yes Exam - Physical Exam Narrative exam: VITAL SIGNS: Reviewed. GENERAL: The patient appears normally developed, Vital signs as documented. HEAD: No signs of head trauma. EYES: Pupils are equal. Extraocular motions intact. EARS: Hearing grossly intact. MOUTH: Oropharynx is normal except missing dentition. NECK: No adenopathy, no JVD. CHEST: Chest with clear breath sounds bilaterally. No wheezes, rales, or rhonchi. CARDIAC: Regular rate and rhythm. S1 and S2, without murmurs, gallops, or rubs. VASCULAR: No Edema. Peripheral pulses normal and equal in all extremities. ABDOMEN: Soft, non tender and non distended. No rebound or guarding, and no masses palpated. Bowel Sounds normal. MUSCULOSKELETAL: Good range of motion of all major joints. Extremities without clubbing, cyanosis or edema. NEUROLOGIC EXAM: Alert and oriented x 3 No focal sensory or strength deficits. Speech normal. Follows commands. PSYCHIATRIC: Mood normal. SKIN: detail exam as documented in skin assessment - Constitutional Vitals: Temp Pulse Resp BP Pulse Ox 97.9 F 68 16 100/47 100 11/02/20 08:50 11/02/20 08:50 11/02/20 08:50 11/02/20 08:50 11/02/20 08:50 Plan Activity: advance as tolerated, fall precautions Diet: low fat Special Instructions: record daily BP diary (If systolic blood pressures greater than 120 patient can resume the amlodipine), record blood sugar diary, smoking cessation Follow up with: SINGH BARROW MD [Primary Care Provider] - 3-5 Days ARGELIA DÍAZ MD [Staff Physician] - 7 Days NIMA KHANNA MD [Staff Physician] - 7 Days
[2020-11-02] MEDS ORDERED: FLU VACC QUAD 2020-2021 (6 months +)/PF 60 0.5 ML SYRINGE IM ONE (12:00)
[2020-11-02 14:16] LABS: Basophils # (Auto) 0.1 K/mm3 (0.0-0.1); Basophils % (Auto) 0.7 % (0.0-1.8); Eosinophils # (Auto) 0.1 K/mm3 (0.0-0.4); Eosinophils % (Auto) 1.9 % (0.0-4.3); Hematocrit 27.6 % (30.3-42.9); Hemoglobin 9.3 gm/dl (10.1-14.3); Mean Corpuscular HGB Conc 34 % (30-34); Mean Corpuscular Volume 86 fl (79-97); Monocytes # (Auto) 0.7 K/mm3 (0.0-0.8); Platelet Count 216 K/mm3 (140-440); Red Blood Count 3.21 M/mm3 (3.65-5.03); Red Cell Distribution Width 14.4 % (13.2-15.2)
--- NOTE | 2020-11-02 15:12 | Consultation ---
History of Present Illness - Reason for Consult Consult date: 11/02/20 CVA, carotid stenosis - History of Present Illness A patient with a history of prior CVA which occurred last summer while patient was having a brain aneurysm on the right repaired. This was done at [facility]. The patient recovered with physical therapy and was in her usual state of health until yesterday when she began to experience left upper extremity weakness. She does have some right residual eyelid drooping. On exam, the patient has a symmetric upper extremity strength slightly diminished on the left. She was worked up and evaluated with a carotid ultrasound which demonstrates mild stenosis in her left ICA. The patient continues to improve from her symptoms on presentation. Past History Past Medical History: hypertension, hyperlipidemia, stroke Past Surgical History: Other (Removal of spur to left toe. Removal of ganglion cyst from left hand) Social history: single, smoking. denies: alcohol abuse, prescription drug abuse Family history: diabetes, hypertension Medications and Allergies Allergies Allergy/AdvReac Type Severity Reaction Status Date / Time No Known Allergies Allergy Verified 11/01/20 14:14 Home Medications Medication Instructions Recorded Confirmed Last Taken Type Aspirin [Adult Aspirin] 81 mg PO QDAY 11/02/20 11/02/20 Unknown History Atorvastatin [Lipitor] 80 mg PO QHS 11/02/20 11/02/20 Unknown History Ticagrelor (Nf) [Brilinta (Nf)] 1 tab PO BID 11/02/20 11/02/20 Unknown History carvediloL [Coreg] 12.5 mg PO BID 11/02/20 11/02/20 Unknown History hydrALAZINE [Apresoline TAB] 25 mg PO Q8HR 11/02/20 11/02/20 Unknown History levETIRAcetam [Keppra TAB] 500 mg PO BID 11/02/20 11/02/20 Unknown History Active Meds: Active Medications Acetaminophen (Acetaminophen 325 Mg Tab) 650 mg PO Q4H PRN PRN Reason: Pain, Mild (1-3) Aspirin (Aspirin 325 Mg Tab) 325 mg PO QDAY MICHELLE Last Admin: 11/02/20 10:15 Dose: 325 mg Documented by: Atorvastatin Calcium (Atorvastatin 40 Mg Tab) 40 mg PO QHS MICHELLE Bisacodyl (Bisacodyl 10 Mg Rect Supp) 10 mg MI QDAY PRN PRN Reason: Constipation Ceftriaxone Sodium (Rocephin/Ns 1 Gm/50 Ml) 1 gm in 50 mls @ 100 mls/hr IV Q24H [facility]; Protocol Stop: 11/02/20 23:59 Last Admin: 11/01/20 15:30 Dose: 100 mls/hr Documented by: Magnesium Hydroxide (Magnesium Hydroxide (Mom) Oral Liqd Udc) 30 ml PO Q4H PRN PRN Reason: Constipation Metoclopramide HCl (Metoclopramide 10 Mg Tab) 10 mg PO Q6H PRN PRN Reason: Nausea And Vomiting Ondansetron HCl (Ondansetron 4 Mg/2 Ml Inj) 4 mg IV Q8H PRN PRN Reason: Nausea And Vomiting Promethazine HCl (Promethazine 25 Mg Rect Supp) 25 mg MI Q6H PRN PRN Reason: Nausea And Vomiting Sodium Chloride (Sodium Chloride 0.9% 10 Ml Flush Syringe) 10 ml IV PRN PRN PRN Reason: LINE FLUSH Review of Systems All systems: negative Exam - Constitutional Vitals: Temp Pulse Resp BP Pulse Ox 97.9 F 61 16 100/47 98 11/02/20 08:50 11/02/20 11:26 11/02/20 08:50 11/02/20 08:50 11/02/20 10:30 General appearance: Present: no acute distress - EENT ENT: hearing intact - Neck Neck: Present: supple - Respiratory Respiratory effort: normal - Abdominal General gastrointestinal: Present: deferred Female genitourinary: Present: deferred - Rectal Rectal Exam: deferred - Psychiatric Psychiatric: appropriate mood/affect, cooperative Results - Labs CBC & Chem 7: 11/02/20 13:22 11/01/20 12:21 Labs: Abnormal lab results 11/01/20 11/02/20 Range/Units 12:46 13:22 RBC 3.21 L (3.65-5.03) M/mm3 Hgb 9.3 L (10.1-14.3) gm/dl Hct 27.6 L (30.3-42.9) % Lymph % (Auto) 13.0 L (13.4-35.0) % [place] % (Auto) 9.0 H (0.0-7.3) % Lymph # (Auto) 1.0 L (1.2-5.4) K/mm3 Seg Neutrophils % 75.4 H (40.0-70.0) % POC Glucose 114 H (70-105) mg/dL Assessment and Plan Patient with a history of prior stroke on the right following aneurysm repair with recurrent symptoms of a right-sided CVA that developed yesterday. Her left carotid artery demonstrates mild narrowing 50 to 79% with increased velocity which would be the contralateral side of the patient's symptoms. Patient will need to begin physical therapy. For further work-up, the patient may undergo a CTA of the head and neck. Patient is already on appropriate therapy with aspirin, statin and antihypertensives. She will need to follow-up on discharge with her neurosurgeons who performed the aneurysm coiling.
--- NOTE | 2020-11-02 15:19 | Consultation ---
History of Present Illness Consult date: 11/02/20 Reason for Consult: CVA Chief complaint: Left-sided weakness History of present illness: 65 yo female with htn, hld, vascular dementia, stroke w/ residual left-sided weakness, glaucoma, "aneurysm that made my eye close and open a little", who presents w/ acute onset of left face/arm weakness and some confusion. She c urrently notes improvement in the weakness and resolution of confusion but notes chronic memory issues. Past History Past Medical History: hypertension, hyperlipidemia, stroke Past Surgical History: Other (Removal of spur to left toe. Removal of ganglion cyst from left hand) Social history: single, smoking. denies: alcohol abuse, prescription drug abuse Family history: diabetes, hypertension Medications and Allergies Allergies Allergy/AdvReac Type Severity Reaction Status Date / Time No Known Allergies Allergy Verified 11/01/20 14:14 Home Medications Medication Instructions Recorded Confirmed Last Taken Type Aspirin [Adult Aspirin] 81 mg PO QDAY 11/02/20 11/02/20 Unknown History Atorvastatin [Lipitor] 80 mg PO QHS 11/02/20 11/02/20 Unknown History Ticagrelor (Nf) [Brilinta (Nf)] 1 tab PO BID 11/02/20 11/02/20 Unknown History carvediloL [Coreg] 12.5 mg PO BID 11/02/20 11/02/20 Unknown History hydrALAZINE [Apresoline TAB] 25 mg PO Q8HR 11/02/20 11/02/20 Unknown History levETIRAcetam [Keppra TAB] 500 mg PO BID 11/02/20 11/02/20 Unknown History Active Meds: Active Medications Acetaminophen (Acetaminophen 325 Mg Tab) 650 mg PO Q4H PRN PRN Reason: Pain, Mild (1-3) Aspirin (Aspirin 325 Mg Tab) 325 mg PO QDAY [facility] Last Admin: 11/02/20 10:15 Dose: 325 mg Documented by: Atorvastatin Calcium (Atorvastatin 40 Mg Tab) 40 mg PO QHS MICHELLE Bisacodyl (Bisacodyl 10 Mg Rect Supp) 10 mg DC QDAY PRN PRN Reason: Constipation Ceftriaxone Sodium (Rocephin/Ns 1 Gm/50 Ml) 1 gm in 50 mls @ 100 mls/hr IV Q24H [facility]; Protocol Stop: 11/02/20 23:59 Last Admin: 11/01/20 15:30 Dose: 100 mls/hr Documented by: Magnesium Hydroxide (Magnesium Hydroxide (Mom) Oral Liqd Udc) 30 ml PO Q4H PRN PRN Reason: Constipation Metoclopramide HCl (Metoclopramide 10 Mg Tab) 10 mg PO Q6H PRN PRN Reason: Nausea And Vomiting Ondansetron HCl (Ondansetron 4 Mg/2 Ml Inj) 4 mg IV Q8H PRN PRN Reason: Nausea And Vomiting Promethazine HCl (Promethazine 25 Mg Rect Supp) 25 mg DC Q6H PRN PRN Reason: Nausea And Vomiting Sodium Chloride (Sodium Chloride 0.9% 10 Ml Flush Syringe) 10 ml IV PRN PRN PRN Reason: LINE FLUSH Review of Systems All systems: negative (as per HPI;) Physical Examination - Vital Signs Vital Signs: Vital Signs Pulse Resp Pulse Ox 64 13 100 11/01/20 12:12 11/01/20 12:12 11/01/20 12:12 - Physical Exam Narrative exam: Gen: nad, well-nourished; Head: normocephalic; Eyes: no gaze deviation; no ptosis; ENT: normal vocalization; CVS: warm and well-perfused; Pulm: no respiratory distress; GI: appears non-distended; Ext: no cyanosis at distal extremities; Skin: no acute rash at distal extremities; Heme: no pathologic bruising at distal extremities; Neuro: alert, oriented to name, age, month, year, slight dysarthria, no aphasia, CN 2 - PERRL, visual jack decreased at right eye, CN 3, 4, 6 - EOMI w/ left ptosis, CN 5 - facial sensation symmetric to light touch, CN 7 - facial movement symmetric, CN 8 - hearing grossly intact, CN 9, 10 - uvula midline, CN 11 - shoulder movement symmetric, CN 12 - tongue midline; Motor - at least 4/5 at right exts and LLE; at least 3/5 at LUE; Sensory - light touch decreased at left arm; Cerebellar - coordination intact except at LUE, Gait - deferred secondary to fall risk; NIHSS (1a.) Level of Consciousness:0 (1b.) LOC Questions:0 (1c.) LOC Commands:0 (2.) Best Gaze:0 (3.) Visual:0 (4.) Facial Palsy:1 (5a.) Motor Arm, Left:1 (5b.) Motor Arm, Right:0 (6a.) Motor Leg, Left:0 (6b.) Motor Leg, Right:0 (7.) Limb Ataxia:1 (8.) Sensory:1 (9.) Best Language:0 (10.) Dysarthria:1 (11.) Extinction and Inattention:0 NIHSS Total Score: 5 Results - Laboratory Findings CBC and BMP: 11/02/20 13:22 11/01/20 12:21 Abnormal Lab Findings: Abnormal Labs 11/01/20 11/01/20 11/01/20 12:21 12:21 12:21 WBC 11.2 H RBC 3.31 L Hgb 9.4 L Hct 28.7 L Lymph % (Auto) 11.4 L [place] % (Auto) Lymph # (Auto) Seg Neutrophils % 80.1 H Seg Neutrophils # 9.0 H APTT 24.0 L Carbon Dioxide 20 L Creatinine 1.4 H Glucose 133 H POC Glucose 11/01/20 11/02/20 12:46 13:22 WBC RBC 3.21 L Hgb 9.3 L Hct 27.6 L Lymph % (Auto) 13.0 L [place] % (Auto) 9.0 H Lymph # (Auto) 1.0 L Seg Neutrophils % 75.4 H Seg Neutrophils # APTT Carbon Dioxide Creatinine Glucose POC Glucose 114 H Assessment and Plan 65 yo female with htn, hld, stroke w/ residual left-sided weakness, vascular dementia, glaucoma, "aneurysm that made my eye close and open a little", who presents w/ acute onset of left face/arm weakness and some confusion. 1. Acute Ischemic Stroke: ASA 325 mg PO qday, MRI Brain w/o contrast pending, recommend CTA Head/Neck w/ & w/o contrast (if GFR improves), TTEcho unremarkable, CUS reveals LICA stenosis, confirm LDL/TSH, telemetry, SBP goal 160-200 mmHg and DBP 80-100 mmHg for 48 more hours. Statin therapy for a goal LDL of 70, when patient passes swallow evaluation. PT/OT/ST/Swallow evaluation. Long-term risk-factor modification, including a strict diet/exercise regimen for secondary stroke prophylaxis. 2. Hypertension - goal SBP 160-200 mmHg and DBP 80-100 mmHg for 48 more hours. 3. Hyperlipidemia - goal LDL of 70 w/ statin therapy if no contraindications. 4. LICA [place] - CUS reveals 50 to 79% stensosis; recommend CTA Head/Neck w/ & w/o contrast (if GFR improves). 5. Dysarthria / Dysphagia - st / swallow evaluation/monitoring. 6. Left-sided weakness - pt/ot evaluation/monitoring. Charles Guevara MD Neurology
[2020-11-02 17:54] LABS: Calcium 9.5 mg/dL (8.4-10.2)
[2020-11-02] MEDS: cefTRIAXone/NS 1 GM/50 ML 1 GM/50 ML BAG IV SCH (18:26)
[2020-11-03] MEDS ORDERED: SODIUM CHLORIDE 0.9% 500 ML 500 ML ONE (07:37)
[2020-11-03 09:06] VITALS: BP 108/50
[2020-11-03] MEDS: ASPIRIN 325 MG TAB PO SCH (09:56)
--- NOTE | 2020-11-03 09:58 | Discharge Summary ---
Providers - Providers Date of Admission: 11/01/20 13:50 Attending physician: DANA LENTZ MD 11/01/20 13:50 Occupational Therapy Evaluate and Treat [CONS] Routine Comment: Reason For Exam: Neuro deficits Physical Therapy Evaluation and Treat [CONS] Routine Comment: Reason For Exam: Neuro deficits 11/02/20 09:04 Consult to Physician [CONS] Routine Comment: Consulting Provider: IMTIAZ GALDAMEZ Physician Instructions: Reason For Exam: cva 11/02/20 11:26 Consult to Physician [CONS] Routine Comment: Consulting Provider: ARGELIA DÍAZ Physician Instructions: Reason For Exam: ICA stenosis Primary care physician: [facility] Reason for admission: CVA Condition: Stable Hospital course: 65 YO Female with CVA complicated by LHP, HTN, Nicotine Dependence, Vascular Dementia, Cerebral Atherosclerosis presents to ED for evaluation. Patient reports "my left arm feels weak and heavy". Patient states that she was in her usual state of health at bedtime which was around 2100 hrs. Patient states that she awoke from sleep around 08:30 hrs. and was found to have left arm weakness, slurred speech, as well as left-sided facial drooping. Patient daughter, who is available by phone to discuss patient history, acknowledges the symptoms and also reports worsening of symptoms this morning. EMS was notified and upon arrival the patient was found to be in distress with a focal neurologic deficit. A code stroke was called and the patient was transported to [facility] for further care and evaluation of the aforementioned symptoms. The patient was seen and evaluated in the emergency department. All lab and imaging studies reviewed. Patient found to have clinical symptoms consistent with CVA. The patient was placed in observation status and admitted to telemetry and initiated on CVA protocol. Patient also found to have acute kidney injury, as well as systemic inflammatory response syndrome. Patient initiated on IV antibiotic therapy as well as IV fluid resuscitation therapy. Patient denies fever, chills, chest pain, palpitation, productive cough, skin rash, recent ill contacts, or known exposure to COVID-19. No prior admission for review. All medication listed at time of admission has been reconciled. Advanced care planning conducted in ED. Patient was considered not a candidate for IA intervention or IV alteplase due to duration of symptoms. I discussed with the patient's daughter who did not have much information but asked me to call Ms. 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 Review of imaging studies shows ICA stenosis of 50 to 79%. Have consulted IR to give us their input prior to discharge of the patient. Patient apparently at home is on Brilinta and high dose of atorvastatin will continue this at this time. Per the daughter the patient also had 2 aneurysms in the past and was okayed to be on this medications. EKG did not reveal any atrial fibrillation at this time. 20 minutes of counseling was provided to the patient on tobacco use disorder and need to quit she verbalized understanding. Patient requesting to be discharged 11/03: Patient seen and examined this morning no further precipitating symptoms noted. She was seen by vascular and also by neurology with their form I recommended a CTA to be done when GFR is improved. Creatinine is still 1.4. As discussed with the patient to have her primary neurosurgeon to review and repeat the CTA. We will continue current management which includes the Brillilanta and high-dose statin on discharge. Medications are last filled for one month supply 09/27. Will write renewal and counselling given on need to be complaint with medications. Ms Scott gave me Dr Bautista OFFICE [phone] AND I DID CALL TO UPDATE FOLLOW UP- informed her that the office will call her (1) Transient dysarthria and worsening of baseline left-sided weakness - subacute CVA (2) SIRS (systemic inflammatory response syndrome) with no evidence of sepsis (3) DONIS (acute kidney injury) secondary to vasomotor nephropathy (4) tobacco use disorder (5) HTN (6) ICA Stenosis Disposition: DC/TX-06 HOME [facility] Time spent for discharge: 35 MINS Core Measure Documentation - Palliative Care Palliative Care/ Comfort Measures: Not Applicable - Core Measures Any of the following diagnoses?: stroke - Stroke Discharge Requirements Statin for LDL = or >70 mg/dl on DC: Yes Anticoag for atrial fib/atrial flutter: Not Applicable Antithrombotic for ischemic stroke: Yes Exam - Physical Exam Narrative exam: VITAL SIGNS: Reviewed. GENERAL: The patient appears normally developed, Vital signs as documented. HEAD: No signs of head trauma. EYES: Pupils are equal. Extraocular motions intact. EARS: Hearing grossly intact. MOUTH: Oropharynx is normal except missing dentition. NECK: No adenopathy, no JVD. CHEST: Chest with clear breath sounds bilaterally. No wheezes, rales, or rhonchi. CARDIAC: Regular rate and rhythm. S1 and S2, without murmurs, gallops, or rubs. VASCULAR: No Edema. Peripheral pulses normal and equal in all extremities. ABDOMEN: Soft, non tender and non distended. No rebound or guarding, and no masses palpated. Bowel Sounds normal. MUSCULOSKELETAL: Good range of motion of all major joints. Extremities without clubbing, cyanosis or edema. NEUROLOGIC EXAM: Alert and oriented x 3 No focal sensory or strength deficits. Speech normal. Follows commands. PSYCHIATRIC: Mood normal. SKIN: detail exam as documented in skin assessment - Constitutional Vitals: Temp Pulse Resp BP Pulse Ox 99.1 F 62 20 108/50 100 11/03/20 08:32 11/03/20 08:32 11/03/20 04:13 11/03/20 08:32 11/03/20 08:32 Plan Activity: advance as tolerated, fall precautions Diet: low fat Special Instructions: record daily weights, record daily BP diary, physical therapy, occupational therapy Additional Instructions: Patient will need a CTA of the carotid arteries with either the primary care physician or the neurosurgeon once renal function is improved. called Dr Mary office and left a message both at. [phone]. Was able to speak with Dr Bautista office [phone] and informed they will call the sister and give information about appointment Follow up with: ARGELIA DÍAZ MD [Staff Physician] - 7 Days SINGH BARROW MD [Primary Care Provider] - 3-5 Days SAMEER MCCARTY MD [Staff Physician] - 7 Days Prescriptions: Atorvastatin Calcium [Lipitor] 80 mg PO QHS #30 tablet Ticagrelor (Nf) [Brilinta (Nf)] 1 tab PO BID #60 tab levETIRAcetam [Keppra TAB] 500 mg PO BID #60 tab
== END 2020-11-03 11:38 | disposition home health service (06) ==
LOC: ED 11:50 → 4A 13:50
PROVIDERS: ADMIT Internal Medicine; ATTEND Internal Medicine
DX: I63.9 Cerebral infarction, unspecified (principal); R65.10 Systemic inflammatory response syndrome (SIRS) of non-infectious origin without acute organ dysfunction; N17.9 Acute kidney failure, unspecified; I10 Essential (primary) hypertension; E78.5 Hyperlipidemia, unspecified; F17.210 Nicotine dependence, cigarettes, uncomplicated; R29.705 NIHSS score 5; Z98.890 Other specified postprocedural states; Z79.82 Long term (current) use of aspirin; Z79.899 Other long term (current) drug therapy
CPT/HCPCS: 36415; 70450; 80048; 80061; 82962; 84484; 85025; 85610; 85670; 85730; 93005; 93306; 93880; 96365; 96366; 97116; 97162; 97165; 99285; 99406; A9270; G0378; J0696; 90686

== ENCOUNTER 2022-04-24 15:53 | Emergency (ER) | payer MEDICARE, OTHER ==
--- NOTE | 2022-04-24 16:50 | Emergency Department Report ---
HPI - General Chief Complaint: Syncope Time Seen by Provider: 04/24/22 16:24 - HPI HPI: Room 24 The patient is a 66-year-old female present with chief complaint of fall. The patient's daughter states she came home early and heard the patient open her door and then fall to the ground. The daughter went to check on the patient and found her lying on the floor awake with eyes open but appearing confused. The patient admits to consuming alcohol today (the daughter states the patient drinks frequently). The patient states she wanted to go to the bathroom and slipped on a plastic pack of tissues that was on the floor causing her to fall. Patient denies loss of consciousness and denies complaints currently stating "I feel fine." Daughter seeking home health services for the patient ED Past Medical Hx - Past Medical History Hx Hypertension: Yes Hx CVA: Yes Hx Seizures: Yes Hx Dementia: Yes (vascular dementia) Additional medical history: Brain Aneurysm - Surgical History Additional Surgical History: Removal of spur to left toe. Removal of ganglion cyst from left hand. Cerebral aneurysm repair x2 (March and August 2020) - Family History Family history: no significant - Social History Smoking Status: Former Smoker (None x2 months) Substance Use Type: Alcohol (Frequently per daughter) - Medications Home Medications: Home Medications Medication Instructions Recorded Confirmed Last Taken Type Aspirin [Adult Aspirin] 81 mg PO QDAY 11/02/20 11/02/20 Unknown History carvediloL [Coreg] 12.5 mg PO BID 11/02/20 11/02/20 Unknown History hydrALAZINE [Apresoline TAB] 25 mg PO Q8HR 11/02/20 11/02/20 Unknown History Atorvastatin Calcium [Lipitor] 80 mg PO QHS #30 tablet 11/03/20 Unknown Rx Ticagrelor (Nf) [Brilinta (Nf)] 1 tab PO BID #60 tab 11/03/20 Unknown Rx levETIRAcetam [Keppra TAB] 500 mg PO BID #60 tab 11/03/20 Unknown Rx ED Review of Systems ROS: Stated complaint: SYNCOPE Other details as noted in HPI Constitutional: no symptoms reported Eyes: denies: eye pain ENT: denies: throat pain Respiratory: no symptoms reported Cardiovascular: denies: chest pain Endocrine: no symptoms reported Gastrointestinal: denies: abdominal pain Genitourinary: denies: dysuria Musculoskeletal: denies: back pain Neurological: denies: headache Physical Exam - Physical Exam Vital Signs: Vital Signs 04/24/22 16:11 Pulse Rate 80 Respiratory 16 Rate Blood Pressure 142/90 [Left] O2 Sat by Pulse 98 Oximetry Physical Exam: GENERAL: The patient is well-developed well-nourished female lying on stretcher not appearing to be in acute distress. [] HEENT: Normocephalic. Atraumatic. Extraocular motions are intact. Patient has moist mucous membranes. NECK: Supple. Trachea midline CHEST/LUNGS: Clear to auscultation. There is no respiratory distress noted. HEART/CARDIOVASCULAR: Regular. There is no tachycardia. There is no gallop rub or murmur. ABDOMEN: Abdomen is soft, nontender. Patient has normal bowel sounds. There is no abdominal distention. SKIN: There is no rash. There is no edema. There is no diaphoresis. NEURO: The patient is awake, alert, and oriented. The patient is cooperative. The patient has no focal neurologic deficits. The patient has normal speech. Hard of hearing. Cranial nerves II through XII grossly intact. Patient able to hold either upper extremity at 45 degree angle for 10-second count without drift. Patient able to hold either lower extremity at 30 degree angle for 5- second count without drift. GCS 15 MUSCULOSKELETAL: There is no evidence of acute injury. ED Course Vital Signs 04/24/22 16:11 Pulse Rate 80 Respiratory 16 Rate Blood Pressure 142/90 [Left] O2 Sat by Pulse 98 Oximetry - Consultations Consultation #1: 04/24/22 18:09 Neurosurgery paged-we do not currently have neurosurgery coverage at [facility] Consultation #2: 04/24/22 18:26 [place] transfer line called 04/24/22 18:33 [place] on saturation 04/24/22 18:33 [facility] transfer line called 04/24/22 18:36 [facility] at capacity 04/24/22 18:36 [facility] transfer line called 04/24/22 18:54 Case discussed with trauma surgeon Dr. Peres-will accept patient in transfer ED Medical Decision Making - Lab Data Result diagrams: 04/24/22 17:58 04/24/22 17:58 Laboratory Tests 04/24/22 04/24/22 04/24/22 17:53 17:58 17:58 WBC 6.5 RBC 2.67 L Hgb 8.8 L Hct 25.6 L MCV 96 MCH 33 H MCHC 35 H RDW 21.3 H Plt Count 165 Lymph % (Auto) 31.5 [place] % (Auto) 7.3 Eos % (Auto) 0.7 Baso % (Auto) 0.5 Lymph # (Auto) 2.0 [place] # (Auto) 0.5 Eos # (Auto) 0.0 Baso # (Auto) 0.0 Seg Neutrophils % 60.0 Seg Neutrophils # 3.9 Sodium 129 L Potassium 5.1 H Chloride 97.2 L Carbon Dioxide 18 L Anion Gap 19 BUN 17 Creatinine 1.2 Estimated GFR 54 BUN/Creatinine Ratio 14 Glucose 71 Calcium 8.9 Magnesium 1.70 Total Bilirubin 1.80 H AST 123 H ALT 61 H Alkaline Phosphatase 145 H Troponin T < 0.010 Total Protein 7.0 Albumin 3.6 L Albumin/Globulin Ratio 1.1 Urine Color Yellow Urine Turbidity Slightly cloudy Specific [place] (Man) 1.020 Ur Protein (Man) 1+ Ur Ketones (Man) Negative Ur Reducing Substances Not Reportable Urine Bilirubin (Man) Negative Urine WBC (Auto) 5.0 Urine RBC (Auto) 3.0 U Epithel Cells (Auto) 1.0 Urine RBC (Manual) Negative Hyaline Casts 1 Plasma/Serum Alcohol 04/24/22 17:58 WBC RBC Hgb Hct MCV MCH MCHC RDW Plt Count Lymph % (Auto) [place] % (Auto) Eos % (Auto) Baso % (Auto) Lymph # (Auto) [place] # (Auto) Eos # (Auto) Baso # (Auto) Seg Neutrophils % Seg Neutrophils # Sodium Potassium Chloride Carbon Dioxide Anion Gap BUN Creatinine Estimated GFR BUN/Creatinine Ratio Glucose Calcium Magnesium Total Bilirubin AST ALT Alkaline Phosphatase Troponin T Total Protein Albumin Albumin/Globulin Ratio Urine Color Urine Turbidity Specific [place] (Man) Ur Protein (Man) Ur Ketones (Man) Ur Reducing Substances Urine Bilirubin (Man) Urine WBC (Auto) Urine RBC (Auto) U Epithel Cells (Auto) Urine RBC (Manual) Hyaline Casts Plasma/Serum Alcohol 0.14 H - Radiology Data Radiology results: report reviewed (CT head, CT cervical spine), image reviewed (CT head, CT cervical spine) [facility] [address] [place] [address] Cat Scan Report Signed Patient: JINNY MISTRY MR#: [id number] : 1955 Acct:[id number] Age/Sex: 66 / F ADM Date: 04/24/22 Loc: ED Attending Dr: Ordering Physician: FABIOLA LIANG MD Date of Service: 04/24/22 Procedure(s): CT head/brain wo con Accession Number(s): [id number] cc: FABIOLA LIANG MD CT HEAD WITHOUT CONTRAST INDICATION / CLINICAL INFORMATION: Fall, confusion. TECHNIQUE: All CT scans at this location are performed using CT dose reduction for ALARA by means of automated exposure control. 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 LIMITATIONS: Beam hardening artifact from aneurysm coils limits evaluation of the structures in and around the suprasellar cistern. HEMORRHAGE: There is a small (3 mm thick) subdural hematoma along the inner table of the right parietal bone. There is no associated mass effect. This is a new finding in comparison to previous study. EXTRA-AXIAL SPACES: Moderate parenchymal volume loss is noted manifest by enlargement of the cortical sulci and sylvian fissures. VENTRICULAR SYSTEM: The third and lateral ventricles are enlarged reflecting a degree of parenchymal volume loss which is somewhat greater than expected for patient's age. Note is made of prominence of the cisterna of the vellum interpositum. CEREBRAL PARENCHYMA: Large area of encephalomalacia in is present in the right parietal region secondary to remote infarction. Advanced microvascular ischemic changes are present in both cerebral hemispheres. MIDLINE SHIFT OR HERNIATION: There is no mass effect. CEREBELLUM / BRAINSTEM: Brainstem and cerebellum have an unremarkable appearance. MIDLINE STRUCTURES:No abnormalities of the pituitary gland or pineal region are identified. INTRACRANIAL VESSELS: Calcified atherosclerotic plaque is seen along the course of the cavernous segments of both internal carotid arteries as well as the V4 segments of both vertebral arteries. ORBITS: visualized portions of the orbits have an unremarkable appearance. SOFT TISSUES of HEAD: No significant abnormality. CALVARIUM: Evaluation of bone windows reveals no abnormalities. PARANASAL SINUSES / MASTOID AIR CELLS: Visualized portions of the paranasal sinuses are free from inflammatory mucosal disease. Mastoid air cells are normally pneumatized. IMPRESSION: 1. Small right parietal subdural hematoma . 2. Status post vascular aneurysm treatment R ICA. 3. Remote right parietal infarction. CRITICAL RESULT: Time of Discovery (ASSISTANT EXECUTIVE HOUSEKEEPER/CDT): 1700 Central standard time Time of Communication (ASSISTANT EXECUTIVE HOUSEKEEPER/CDT): 1708 Licensed Practitioner Receiving Report: Dr. Liang Read-Back Performed: Not applicable. Signer Name: Cortez Angulo MD Signed: 04/24/2022 6:09 PM Workstation Name: [id number] Transcribed By: Dictated By: Cortez Angulo MD Electronically Authenticated By: Cortez Angulo MD Signed Date/Time: 04/24/221808 DD/ 57 TD/TT: [place] [address] Cat Scan Report Signed Patient: JINNY MISTRY MR#: [id number] : 1955 Acct:[id number] Age/Sex: 66 / F ADM Date: 04/24/22 Loc: ED Attending Dr: Ordering Physician: FABIOLA LIANG MD Date of Service: 04/24/22 Procedure(s): CT cervical spine wo con Accession Number(s): [id number] cc: FABIOLA LIANG MD CT cervical spine wo con INDICATION: Fall, confusion. TECHNIQUE: Axial CT images of the cervical spine were obtained. Sagittal and coronal reformatted images were produced. All CT scans at this location are performed using CT dose reduction for ALARA by means of automated exposure control. COMPARISON: None available. FINDINGS: ALIGNMENT: Normal alignment. VERTEBRAE: No fracture. Vertebral body heights are preserved. C1 and C2 are congruent. SPONDYLOSIS: Few spondylosis with multilevel osseous foraminal narrowing. There is moderate appearing spinal canal stenosis at C4-C5. SOFT TISSUES: No significant soft tissue abnormality. ADDITIONAL FINDINGS: Oval high attenuating lesion seen in the subcutaneous tissues of the upper neck, likely epidermal inclusion cyst. Aneurysm clip seen in the right supr aclinoid ICA. IMPRESSION: 1. No fracture of the cervical spine. Signer Name: Fidencio Mckeon MD Signed: 04/24/2022 6:03 PM Workstation Name: [id number] Transcribed By: CS Dictated By: Fidencio Mckeon MD Electronically Authenticated By: Fidencio Mckeon MD Signed Date/Time: 04/24/221802 DD/ 99 TD/TT: - Differential Diagnosis Alcohol intoxication, closed head injury, fall, Critical care attestation.: If time is entered above; I have spent that time in minutes in the direct care of this critically ill patient, excluding procedure time. ED Disposition Clinical Impression: Acute subdural hematoma, Fall, Alcoholism Disposition: 51 HOSPICE/MEDICAL FACILITY Is pt being admited?: No Does the pt Need Aspirin: No Condition: Fair Referrals: PRIMARY CARE, [Primary Care Provider] - 3-5 Days Time of Disposition: 18:54 (Awaiting transport)
--- NOTE | 2022-04-24 18:07 | Cat Scan Report ---
CT cervical spine wo con INDICATION: Fall, confusion. TECHNIQUE: Axial CT images of the cervical spine were obtained. Sagittal and coronal reformatted images were pro duced. All CT scans at this location are performed using CT dose reduction for ALARA by means of auto mated exposure control. COMPARISON: None available. FINDINGS: ALIGNMENT: Normal alignment. VERTEBRAE: No fracture. Vertebral body heights are preserved. C1 and C2 are congruent. SPONDYLOSIS: Few spondylosis with multilevel osseous foraminal narrowing. There is moderate appearing spinal canal stenosis at C4-C5. SOFT TISSUES: No significant soft tissue abnormality. ADDITIONAL FINDINGS: Oval high attenuating lesion seen in the subcutaneous tissues of the upper neck, likely epidermal inclusion cyst. Aneurysm clip seen in the right supraclinoid ICA. IMPRESSION: 1. No fracture of the cervical spine. Signer Name: Fidencio Mckeon MD Signed: 04/24/2022 6:03 PM Workstation Name: [id number]
--- NOTE | 2022-04-24 18:13 | Cat Scan Report ---
CT HEAD WITHOUT CONTRAST INDICATION / CLINICAL INFORMATION: Fall, confusion. TECHNIQUE: All CT scans at this location are performed using CT dose reduction for ALARA by means of automated e xposure control. 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 LIMITATIONS: Beam hardening artifact from aneurysm coils limits evaluation of the structures in and a round the suprasellar cistern. HEMORRHAGE: There is a small (3 mm thick) subdural hematoma along the inner table of the right pariet al bone. There is no associated mass effect. This is a new finding in comparison to previous study. EXTRA-AXIAL SPACES: Moderate parenchymal volume loss is noted manifest by enlargement of the cortical sulci and sylvian fissures. VENTRICULAR SYSTEM: The third and lateral ventricles are enlarged reflecting a degree of parenchymal volume loss which is somewhat greater than expected for patient's age. Note is made of prominence of the cisterna of the vellum interpositum. CEREBRAL PARENCHYMA: Large area of encephalomalacia in is present in the right parietal region second aicha to remote infarction. Advanced microvascular ischemic changes are present in both cerebral hemisp heres. MIDLINE SHIFT OR HERNIATION: There is no mass effect. CEREBELLUM / BRAINSTEM: Brainstem and cerebellum have an unremarkable appearance. MIDLINE STRUCTURES:No abnormalities of the pituitary gland or pineal region are identified. INTRACRANIAL VESSELS: Calcified atherosclerotic plaque is seen along the course of the cavernous segm ents of both internal carotid arteries as well as the V4 segments of both vertebral arteries. ORBITS: visualized portions of the orbits have an unremarkable appearance. SOFT TISSUES of HEAD: No significant abnormality. CALVARIUM: Evaluation of bone windows reveals no abnormalities. PARANASAL SINUSES / MASTOID AIR CELLS: Visualized portions of the paranasal sinuses are free from inf lammatory mucosal disease. Mastoid air cells are normally pneumatized. IMPRESSION: 1. Small right parietal subdural hematoma . 2. Status post vascular aneurysm treatment R ICA. 3. Remote right parietal infarction. CRITICAL RESULT: Time of Discovery ([employer] PORTAL CONSULTANT/CDT): 1700 Central standard time Time of Communication ([employer] PORTAL CONSULTANT/CDT): 1708 Licensed Practitioner Receiving Report: Dr. Chaudhari Read-Back Performed: Not applicable. Signer Name: Cortez Angulo MD Signed: 04/24/2022 6:09 PM Workstation Name: [id number]
[2022-04-24 18:15] LABS: Hyaline Casts,Urine 1 /LPF
[2022-04-24 18:17] LABS: Basophils % (Auto) 0.5 % (0.0-1.8); Eosinophils % (Auto) 0.7 % (0.0-4.3); Hematocrit 25.6 % (30.3-42.9); Hemoglobin 8.8 gm/dl (10.1-14.3); Lymphocytes % (Auto) 31.5 % (13.4-35.0); Mean Corpuscular HGB Conc 35 % (30-34); Mean Corpuscular Volume 96 fl (79-97); Monocytes # (Auto) 0.5 K/mm3 (0.0-0.8); Monocytes % (Auto) 7.3 % (0.0-7.3); Platelet Count 165 K/mm3 (140-440); Red Blood Count 2.67 M/mm3 (3.65-5.03)
[2022-04-24 18:19] LABS: Color,Urine Yellow (Yellow)
[2022-04-24 18:19] LABS: Red Cell Distribution Width 21.3 % (13.2-15.2)
[2022-04-24 18:35] LABS: Alanine Aminotransferase 61 units/L (7-56); Albumin 3.6 g/dL (3.9-5); BUN/Creatinine Ratio 14; Blood Urea Nitrogen 17 mg/dL (7-17); Calcium 8.9 mg/dL (8.4-10.2); Hemolysis Index 40
[2022-04-24 19:03] LABS: INR 1.32 (0.87-1.13)
[2022-04-24 19:04] LABS: Partial Thromboplastin Time 44.1 Sec. (24.2-36.6)
[2022-04-24 20:51] VITALS: BP 131/77
--- NOTE | 2022-04-25 09:55 | Electrocardiograph Report ---
[facility] Test Date: 2022-04-24 Test Time: 17:13:13 Pat Name: JINNY MISTRY Department: Room: Gender: F Railroad Operator: AF : [id number] Requested By: FABIOLA LIANG Order Number: [id number] Reading MD: Garrett Guevara Measurements Intervals [place] Rate: 72 P: 58 [place]: 158 QRS: 43 QRSD: 60 T: 65 QT: 421 QTc: 460 Interpretive Statements Sinus rhythm No previous ECG available for comparison Electronically Signed On 04-25-2022 9:55:13 EDT by Garrett Guevara
== END 2022-04-24 21:39 | disposition hospice, inpatient (51) ==
LOC: ED 15:53
DX: S06.5X0A Traumatic subdural hemorrhage without loss of consciousness, initial encounter (principal); F10.20 Alcohol dependence, uncomplicated; I10 Essential (primary) hypertension; Z79.899 Other long term (current) drug therapy; Z79.82 Long term (current) use of aspirin; Z87.891 Personal history of nicotine dependence; Z98.890 Other specified postprocedural states; W18.39XA Other fall on same level, initial encounter; Y93.89 Activity, other specified; Y92.89 Other specified places as the place of occurrence of the external cause; Y99.8 Other external cause status; Y90.0 Blood alcohol level of less than 20 mg/100 ml
CPT/HCPCS: 36415; 70450; 72125; 80053; 80320; 81001; 83735; 84484; 85025; 85610; 85730; 93005; 99285; G0480